=== PATIENT | male | born 1980 | race Hispanic/Latino ===

== ENCOUNTER 2017-07-25 11:43 | Inpatient (IN) | payer OTHER ==
[~2017-07-25] VITALS: Ht 157.5 cm; Wt 66.3 kg
[2017-07-25 12:14] LABS: BASOPHILS # (AUTO) 0.1 (0.0-0.1); BASOPHILS % 0.8 % (0.0-1.0); EOSINOPHILS # (AUTO) 0.1 (0.0-0.4); HEMATOCRIT 45.9 % (38.2-49.6); HEMOGLOBIN 16.1 g/dL (14.0-18.0); LYMPHOCYTES # (AUTO) 2.4 (1.0-3.2); LYMPHOCYTES % 40.4 % (18.0-39.1); MEAN CORPUSCULAR HEMOGLOBIN 31.4 pg (28-32); MEAN CORPUSCULAR HGB CONC 35.1 g/dL (31-35); MEAN CORPUSCULAR VOLUME 89.5 fL (81-99); MONOCYTES # (AUTO) 0.5 (0.2-0.8); MONOCYTES % 8.4 % (4.4-11.3); NEUTROPHILS # (AUTO) 2.9 (2.1-6.9); NEUTROPHILS % 48.1 % (38.7-80.0); PLATELET COUNT 206 x10e3/uL (140-360); RED BLOOD COUNT 5.13 x10e6/uL (4.3-5.7); RED CELL DISTRIBUTION WIDTH 12.2 % (11.7-14.4)
[2017-07-25 12:20] LABS: INR 0.93; PROTHROMBIN TIME 12.9 seconds (11.9-14.5)
[2017-07-25 12:21] LABS: PARTIAL THROMBOPLASTIN TIME 26.4 seconds (23.8-35.5)
--- NOTE | 2017-07-25 12:29 | Diagnostic Imaging Report ---
PROCEDURE: A single AP view of the chest obtained at 1207 hrs. during expiration COMPARISON: None. INDICATIONS: PNEUMOTHORAX FINDINGS: Lines/tubes: None. Lungs: The entire right lung is collapsed due to a pneumothorax. The left lung is clear. There is no pleural effusion. Heart and mediastinum: There is mild leftward shifting of the trachea and to the left and mass effect on the right ventricle. The heart is normal in morphology. Bones: No evidence of fracture or dislocation. No focal osseous lesions. Soft tissues: Unremarkable. IMPRESSION: Large right pneumothorax with mild tension. Findings given to Jamil Pappas at 1228 hours. Dictated by: Fabiola Miller M.D. on 07/25/2017 at 12:37 Electronically approved by: Fabiola Miller M.D. on 07/25/2017 at 12:37
[2017-07-25 12:30] LABS: ALANINE AMINOTRANSFERASE 84 IU/L (0-55); ALBUMIN 4.5 g/dL (3.5-5.0); ALBUMIN/GLOBULIN RATIO 1.3 (0.8-2.0); ALKALINE PHOSPHATASE 47 IU/L (40-150); ANION GAP 12.2 mmol/L (8-16); BLOOD UREA NITROGEN 12 mg/dL (7-26); BUN/CREATININE RATIO 15 (6-25); CALCIUM 9.3 mg/dL (8.4-10.2); CARBON DIOXIDE 25 mmol/L (22-29); CHLORIDE 108 mmol/L (98-107); CREATININE, SERUM 0.82 mg/dL (0.72-1.25); EST GLOMERULAR FILTRATION RATE > 60 ML/MIN (60-); GLUCOSE 93 mg/dL (74-118); POTASSIUM 4.2 mmol/L (3.5-5.1); SODIUM 141 mmol/L (136-145)
[2017-07-25] MEDS ORDERED: MORPHINE SULFATE 2 MG/ML SYR ONE (13:29)
[2017-07-25] MEDS ORDERED: MORPHINE SULFATE 2 MG/ML SYR IV NR (13:30)
[2017-07-25] MEDS ORDERED: MORPHINE SULFATE 4 MG/ML SYR IV ONE (13:30)
--- NOTE | 2017-07-25 14:21 | Diagnostic Imaging Report ---
PROCEDURE: A single AP view of the chest. COMPARISON: Chest x-ray 12 7 hours. INDICATIONS: S/P CHEST TUBE PLACEMENT. FINDINGS: Frontal image obtained at 1413 hrs. Lines/tubes: Thin bore tube has been placed into the right hemithorax. There is only some inflation of the right lung. Large right pneumothorax remains. The left lung is clear. Mass effect on the right atrium and trachea has diminished. No pleural effusion. IMPRESSION: Interval placement of a thin bore right chest tube. Large right pneumothorax is only slightly smaller. Tension on the mediastinum has been released. A larger bore chest tube should be considered. Dictated by: Fabiola Miller M.D. on 07/25/2017 at 14:29 Electronically approved by: Fabiola Miller M.D. on 07/25/2017 at 14:29
--- NOTE | 2017-07-25 16:13 | Diagnostic Imaging Report ---
PROCEDURE: CHEST SINGLE (PORTABLE) 1601 hrs. COMPARISON: Chest x-ray 1403 hrs. INDICATIONS: CHEST TUBE PLACEMENT FINDINGS: The small bore tube now terminates in the apex of the right chest. There is been reexpansion of the right lower lobe. Right upper lobe atelectasis remains but has improved. No pleural effusion. The left lung is stable. There may be a calcified granuloma in the lower left lung field measuring 3 mm. This could also be a bone island. Cardio mediastinal silhouette is normal in morphology. Osseous structures are stable. CONCLUSION: Significant reexpansion of the right lung after chest tube repositioning. Right upper lobe atelectasis remains suggestive of residual pneumothorax. Dictated by: Fabiola Miller M.D. on 07/25/2017 at 16:21 Electronically approved by: Fabiola Miller M.D. on 07/25/2017 at 16:21
[2017-07-25] MEDS ORDERED: MORPHINE SULFATE 5 MG/ML VIAL IV PRN (16:45)
[2017-07-25] MEDS ORDERED: ONDANSETRON HCL INJ 2 MG/ML VIAL IV PRN (16:45)
[2017-07-25] MEDS ORDERED: ACETAMINOPHEN/CODEINE 300MG - 30MG TAB PO PRN (17:30)
--- NOTE | 2017-07-25 18:14 | Consultation ---
DATE OF CONSULTATION: July 25, 2017 PULMONARY CONSULTATION A patient of Dr. Burgos admitted with right-sided chest pain that began approximately 5 days ago when he awakened from sleep. He smoked 2 cigarettes the day before. He is an occasional smoker. He has been progressively short of breath. He thought he had muscle cramps, but the pain persisted. He denies lifting. He has been not working. 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 He has had crushed finger, but no other operations. Denies alcohol use. FAMILY HISTORY: Noncontributory. PHYSICAL EXAMINATION GENERAL: A well-developed white male, anxious, but in no acute distress. VITAL SIGNS: Temperature 98, pulse 70, respirations 16, blood pressure 164/64. HEENT: Head normocephalic, atraumatic. Eyes: Extraocular movements intact. LUNGS: Clear. Diminished breath sounds, right. Mini chest tube noted, right. ABDOMEN: Nontender. EXTREMITIES: Not edematous. IMPRESSION: Spontaneous pneumothorax, slightly elevated liver function. PLAN: Check alpha-1antitrypsin . Request CT chest in the a.m. Alpha-1 antiprotease levels. Continue chest tube drainage. If leak does not stop within the next several days, consideration will be given to undergo fluoroscopic pleurodesis. Thank you for this kind referral. Job#: [id number]
--- NOTE | 2017-07-25 18:42 | Diagnostic Imaging Report ---
PROCEDURE:US ABDOMEN LIMITED COMPARISON:None. INDICATIONS:EVALUATE GB AND LIVER TECHNIQUE: Noel-scale and color doppler transverse and longitudinal images of the right upper quadrant of the abdomen were obtained. FINDINGS: Liver: 13.8 cm in right mid-clavicular line. Increased echogenicity suggestive of steatosis. There is focal fatty sparing adjacent to the gallbladder. No masses. Main portal vein: 1.2 cm. Blood flow is hepatopetal. Gallbladder: Present. A polyp or noncalcified gallstone along the posterior wall measures 2 mm. No gallbladder wall thickening or pericholecystic fluid. Common Bile Duct: 0.2 cm Sonographic Rodriguez's sign: Negative Right kidney: 10.9 cm. Normal echogenicity. No solid masses or hydronephrosis. Pancreas: The visualized portions demonstrate no mass or ductal dilatation. Inferior vena cava: Patent Aorta: Within normal limits Ascites: None in the right upper quadrant of the abdomen. CONCLUSION: Increased hepatic echotexture suggestive of steatosis. Tiny polyp versus noncalcified gallstones the gallbladder as described above. Normal biliary tree. Dictated by: Fabiola Miller M.D. on 07/25/2017 at 18:50 Electronically approved by: Fabiola Miller M.D. on 07/25/2017 at 18:50
--- NOTE | 2017-07-25 21:02 | Diagnostic Imaging Report ---
EXAM: CT Chest WITHOUT contrast INDICATION: \S\ptx, PER RN OLIVER/ CRISTINA POWERS TO DO 07/25/17 AFTER 7PM \[id number] \S\2009 COMPARISON: Chest x-ray on 07/25/2017 TECHNIQUE: Chest was scanned utilizing a multidetector helical scanner from the lung apex through the level of the adrenal glands without administration of IV contrast. Absence of intravenous contrast decreases sensitivity for detection of lymphadenopathy and vascular pathology. Coronal and sagittal reformations were obtained. Routine protocol was performed. IV CONTRAST: None COMPLICATIONS: None RADIATION DOSE: Total DLP: 491.7 mGy*cm Estimated effective dose: (DLP x 0.014 x size factor) mSv CTDIvol has been reviewed. It is below the limits set by the Radiation Protocol Committee (RPC). FINDINGS: LINES/ TUBES: Right pigtail catheter in place terminating in right apex. LUNGS AND AIRWAYS: The lungs are unremarkable. Airways are normal. PLEURA: Small right pneumothorax. Right upper lobe patchy opacities, likely contusions (series 3, image 52). Right lower lobe subsegmental atelectasis and mild scarring. HEART AND MEDIASTINUM: The thyroid gland is normal. No mediastinal, hilar or axillary lymphadenopathy. The heart is normal in size.. There is no pericardial effusion. UPPER ABDOMEN: Unremarkable. BONES: The visualized bony thorax is within normal limits. SOFT TISSUES: Unremarkable. IMPRESSION: Small right pneumothorax with a right pleural pigtail catheter in place. Right upper lobe patchy opacities, which may represent contusions in the setting of trauma, otherwise may represent pneumonia in the appropriate clinical setting. Signed by: Dr. Lauro Richardson MD on 07/25/2017 8:59 PM
[2017-07-25] MEDS: HEPARIN SOD (PORCINE) 5,000 UNIT/ML VIAL SC SCH (21:15)
[2017-07-25 21:53] VITALS: BP 114/72
[2017-07-25 23:00] VITALS: BP 114/72
[2017-07-26] VITALS (8 sets, daily range): BP systolic 88–106; BP diastolic 55–69
[2017-07-26] MEDS ORDERED: CEFTRIAXONE SOD 1 GM VIAL IV SCH (07:45)
--- NOTE | 2017-07-26 07:49 | Diagnostic Imaging Report ---
EXAMINATION: Chest, CHEST SINGLE (PORTABLE) INDICATION: Chest pain COMPARISON: Portable chest 07/25/2017 FINDINGS: LINES: Right pleural drainage catheter. Heart: Normal cardiac silhouette. Vascular: The pulmonary vasculature is within normal limits. Mediastinum: No mediastinal, hilar, or axillary mass or lymphadenopathy. Lungs: No parenchymal mass. No focal consolidation. Pleura: No pleural effusion. No pneumothorax. Bones: No acute osseous abnormality. Soft tissues: Normal. Impression: No acute radiographic abnormality. Signed by: Dr. Asael Jackson M.D. on 07/26/2017 7:46 AM
[2017-07-26] MEDS ORDERED: CEFTRIAXONE SOD 1 GM/NS 50 ML 50 ML IV SCH (08:00)
[2017-07-26] MEDS: HEPARIN SOD (PORCINE) 5,000 UNIT/ML VIAL SC SCH ×2 (08:55→21:22)
[2017-07-26] MEDS: DOCUSATE SODIUM 100 MG CAP PO SCH ×2 (08:55→17:19)
[2017-07-26 09:11] LABS: HIV 1&2 AB SCREEN NON-REACTIVE (NONREACTIVE)
[2017-07-27] VITALS (8 sets, daily range): BP systolic 99–113; BP diastolic 59–72
[2017-07-27 06:53] LABS: CHOL/HDL RATIO 4.3 (3.9-4.7)
[2017-07-27] MEDS: CEFTRIAXONE SOD 1 GM VIAL IV SCH (08:56)
[2017-07-27] MEDS: HEPARIN SOD (PORCINE) 5,000 UNIT/ML VIAL SC SCH ×2 (08:56→21:32)
[2017-07-27] MEDS: DOCUSATE SODIUM 100 MG CAP PO SCH ×2 (08:56→18:20)
--- NOTE | 2017-07-27 11:06 | Diagnostic Imaging Report ---
EXAMINATION: CHEST SINGLE (PORTABLE) INDICATION: \S\PTX COMPARISON: Chest x-ray 07/26/2017 FINDINGS: AP view TUBES and LINES: Right apical pleural chest tube. LUNGS: Lungs are well inflated. Lungs are clear. There is no evidence of pneumonia or pulmonary edema. PLEURA: No pleural effusion or pneumothorax. HEART AND MEDIASTINUM: The cardiomediastinal silhouette is unremarkable. BONES AND SOFT TISSUES: No acute osseous lesion. Soft tissues are unremarkable. UPPER ABDOMEN: No free air under the diaphragm. IMPRESSION: 1. No acute thoracic abnormality. 2. Right apical chest tube. No pneumothorax. Signed by: Dr. Wally Gallegos M.D. on 07/27/2017 11:02 AM
[2017-07-27] MEDS ORDERED: WATER STERILE 10 ML VIAL INJ PRN (18:15)
[2017-07-28] VITALS: BP 97/63
[2017-07-28 04:00] VITALS: BP 101/59
[2017-07-28 08:29] VITALS: BP 105/58
[2017-07-28] MEDS: CEFTRIAXONE SOD 1 GM VIAL IV SCH (08:48)
[2017-07-28] MEDS: DOCUSATE SODIUM 100 MG CAP PO SCH ×2 (08:48→17:08)
[2017-07-28] MEDS: HEPARIN SOD (PORCINE) 5,000 UNIT/ML VIAL SC SCH ×2 (08:50→20:24)
[2017-07-28 12:00] VITALS: BP_SYST 105; BP_SYST 99; BP_DIAS 57; BP_DIAS 58
--- NOTE | 2017-07-28 16:55 | Diagnostic Imaging Report ---
PROCEDURE: A single AP view of the chest. COMPARISON: 07/27/17 INDICATIONS: PNEUMOTHORAX FINDINGS: Lines/tubes: Unchanged pleural catheter with tip overlying right apex. Lungs: The lungs are well inflated and clear. There is no evidence of pneumonia or pulmonary edema. Pleura: There is no pleural effusion or pneumothorax. Heart and mediastinum: The heart and the mediastinum are unremarkable. Bones: No acute bony abnormality. IMPRESSION: No visible pneumothorax. No change from prior exam. Dictated by: Lauro Richardson M.D. on 07/28/2017 at 17:03 Electronically approved by: Lauro Richardson M.D. on 07/28/2017 at 17:03
[2017-07-28 17:23] VITALS: BP 101/60
[2017-07-28 20:00] VITALS: BP 101/65
[2017-07-29] VITALS (7 sets, daily range): BP systolic 91–119; BP diastolic 51–80
--- NOTE | 2017-07-29 07:30 | Diagnostic Imaging Report ---
Examination: Single AP view of the chest. COMPARISON: None. INDICATION: Pneumothorax, chest tube reportedly 2 waterseal overnight 07/28/2017 DISCUSSION: Right apical pleural catheter is again noted. Interval reaccumulation of moderate right apical pneumothorax, maximum air gap 2.7 cm. Lungs are otherwise clear without consolidation or effusion. Cardiomediastinal contour is within normal limits. No acute osseous abnormality. IMPRESSION: Interval reaccumulation of right apical pneumothorax, maximum air gap 2.7 cm. Findings were discussed by telephone with RN Ms. Donaldson at 0720 hours 07/29/2017. Signed by: Dr. Pernell Acosta M.D. on 07/29/2017 7:27 AM
[2017-07-29] MEDS: HEPARIN SOD (PORCINE) 5,000 UNIT/ML VIAL SC SCH ×2 (08:34→22:06)
[2017-07-29] MEDS: DOCUSATE SODIUM 100 MG CAP PO SCH ×2 (08:34→16:37)
[2017-07-29] MEDS: CEFTRIAXONE SOD 1 GM VIAL IV SCH (08:34)
[2017-07-30] VITALS (8 sets, daily range): BP systolic 97–121; BP diastolic 53–69
--- NOTE | 2017-07-30 09:56 | Diagnostic Imaging Report ---
PROCEDURE: A single AP view of the chest. COMPARISON: Portable chest 07/29/2017. INDICATIONS: PNEUMOTHORAX FINDINGS: Lines/tubes: Pleural catheter projects over the right lung. Lungs: No focal consolidation. No parenchymal mass. Pleura: Right apical pneumothorax, measuring 1.3 cm in the right midclavicular line. The right apical pneumothorax is decreased compared to the previous study. No left pneumothorax. No pleural effusion. Heart and mediastinum: The heart and the mediastinum are unremarkable. Bones: No acute bony abnormality. IMPRESSION: Interval decrease of the right apical pneumothorax. Dictated by: Asael Jackson M.D. on 07/30/2017 at 10:05 Electronically approved by: Aasel Jackson M.D. on 07/30/2017 at 10:05
[2017-07-30] MEDS: HEPARIN SOD (PORCINE) 5,000 UNIT/ML VIAL SC SCH ×2 (10:55→21:41)
[2017-07-30] MEDS: DOCUSATE SODIUM 100 MG CAP PO SCH ×2 (10:55→18:00)
[2017-07-30] MEDS: CEFTRIAXONE SOD 1 GM VIAL IV SCH (10:55)
[2017-07-31] VITALS (7 sets, daily range): BP systolic 100–121; BP diastolic 52–70
[2017-07-31 07:45] LABS: BASOPHILS # (AUTO) 0.1 (0.0-0.1); BASOPHILS % 1.1 % (0.0-1.0); EOSINOPHILS # (AUTO) 0.3 (0.0-0.4); EOSINOPHILS % 4.8 % (0.0-6.0); HEMATOCRIT 43.6 % (38.2-49.6); HEMOGLOBIN 15.1 g/dL (14.0-18.0); LYMPHOCYTES # (AUTO) 2.3 (1.0-3.2); LYMPHOCYTES % 43.5 % (18.0-39.1); MEAN CORPUSCULAR HEMOGLOBIN 30.8 pg (28-32); MEAN CORPUSCULAR HGB CONC 34.6 g/dL (31-35); MONOCYTES # (AUTO) 0.5 (0.2-0.8); MONOCYTES % 9.7 % (4.4-11.3); NEUTROPHILS # (AUTO) 2.1 (2.1-6.9); NEUTROPHILS % 40.5 % (38.7-80.0); PLATELET COUNT 216 x10e3/uL (140-360); RED CELL DISTRIBUTION WIDTH 12.1 % (11.7-14.4)
[2017-07-31 08:11] LABS: ALANINE AMINOTRANSFERASE 97 IU/L (0-55); ALBUMIN 3.8 g/dL (3.5-5.0); ALBUMIN/GLOBULIN RATIO 1.2 (0.8-2.0); ALKALINE PHOSPHATASE 42 IU/L (40-150); BLOOD UREA NITROGEN 12 mg/dL (7-26); BUN/CREATININE RATIO 15 (6-25); CALCIUM 9.1 mg/dL (8.4-10.2); CARBON DIOXIDE 25 mmol/L (22-29); CHLORIDE 108 mmol/L (98-107); EST GLOMERULAR FILTRATION RATE > 60 ML/MIN (60-); GLUCOSE 89 mg/dL (74-118); MAGNESIUM 2.2 MG/DL (1.3-2.1); SODIUM 140 mmol/L (136-145)
[2017-07-31] MEDS: HEPARIN SOD (PORCINE) 5,000 UNIT/ML VIAL SC SCH ×2 (09:47→21:16)
[2017-07-31] MEDS: DOCUSATE SODIUM 100 MG CAP PO SCH ×2 (09:47→17:59)
[2017-07-31] MEDS: CEFTRIAXONE SOD 1 GM VIAL IV SCH (09:47)
--- NOTE | 2017-07-31 11:32 | Diagnostic Imaging Report ---
PROCEDURE: X-RAY CHEST, TWO VIEWS COMPARISON: Chest x-ray 07/30/17. INDICATIONS: PNEUMOTHORAX FINDINGS: LINES/TUBES: Small bore tube in the upper right chest is stable in position. LUNGS: No mass or consolidation. The pulmonary vascular markings are normal. PLEURA: Right apical pneumothorax measures 5 mm. No pleural effusions. HEART \T\ MEDIASTINUM: The heart is within normal size-limits. BONES \T\ SOFT TISSUES: No focal other abnormalities CONCLUSION: Tiny right apical pneumothorax. No new cardiothoracic findings. Dictated by: Fabiola Miller M.D. on 07/31/2017 at 11:40 Electronically approved by: Fabiola Miller M.D. on 07/31/2017 at 11:40
[2017-08-01] VITALS (8 sets, daily range): BP systolic 96–112; BP diastolic 55–69
[2017-08-01] MEDS: DOCUSATE SODIUM 100 MG CAP PO SCH ×2 (07:43→16:55)
[2017-08-01] MEDS: CEFTRIAXONE SOD 1 GM VIAL IV SCH (07:43)
[2017-08-01] MEDS: HEPARIN SOD (PORCINE) 5,000 UNIT/ML VIAL SC SCH (07:43)
--- NOTE | 2017-08-01 08:22 | Diagnostic Imaging Report ---
PROCEDURE: Frontal and lateral views of the chest. COMPARISON: Patients [facility], , CHEST 2 VIEWS, 07/31/2017, 10:59. INDICATIONS: PNEUMOTHORAX FINDINGS: Lines/tubes: No change in the small right upper lung field chest tube. Lungs: The lungs are well inflated and clear. There is no evidence of pneumonia or pulmonary edema. Pleura: The size of the apical pneumothorax has diminished and is barely detectable. Heart and mediastinum: The heart and the mediastinum are normal. Bones: No acute bony abnormality. IMPRESSION: Tiny residual right apical pneumothorax. Shan Cook D.O. Dictated by: Shan Cook D.O. on 08/01/2017 at 8:30 Electronically approved by: Shan Cook D.O. on 08/01/2017 at 8:30
--- NOTE | 2017-08-01 12:52 | Diagnostic Imaging Report ---
PROCEDURE:CHEST TUBE REMOVAL CATH COMPARISON:None. INDICATIONS:CHEST TUBE REMOVAL, PNEUMOTHORAX RESOLVED FINDINGS:A fluoroscopic image was obtained over the right apex revealing the small bore apical chest tube. No pneumothorax is identified. The chest tube was removed and subsequent followup upright fluoroscopic image of the right apex performed. Fluoroscopy time: 0.1 minutes. Total dose: 0.98 mGy CONCLUSION:Removal of the right apical small bore chest tube. No pneumothorax following removal. Shan Cook D.O. Dictated by: Shan Cook D.O. on 08/01/2017 at 12:59 Electronically approved by: Shan Cook D.O. on 08/01/2017 at 12:59
--- NOTE | 2017-08-01 17:47 | Diagnostic Imaging Report ---
PROCEDURE: A single AP view of the chest. COMPARISON: Patients [facility], , CHEST 2 VIEWS, 08/01/2017, 8:01. INDICATIONS: follow up pneumothorax FINDINGS: See impression. IMPRESSION: 1. no definite pneumothorax is noted. 2. Lungs are clear. Cardiac mediastinal silhouette is unremarkable. Luca Chowdary M.D. Dictated by: Luca Chowdary M.D. on 08/01/2017 at 17:55 Electronically approved by: Luca Chowdary M.D. on 08/01/2017 at 17:55
== END 2017-08-01 21:34 | disposition home or self-care (01) | DRG 201 ==
LOC: ER 11:43 → ERHOLD 17:28 → MED/SURG 21:00
PROVIDERS: ADMIT Internal Medicine; ATTEND Internal Medicine
PROC: 0W9930Z Drainage of Right Pleural Cavity with Drainage Device, Percutaneous Approach (ICD-10-PCS; principal; 2017-07-25)
PROC: 0WP9X0Z Removal of Drainage Device from Right Pleural Cavity, External Approach (ICD-10-PCS; 2017-08-01)
DX: J93.0 Spontaneous tension pneumothorax (principal); F17.210 Nicotine dependence, cigarettes, uncomplicated
CPT/HCPCS: 32551; 32552; 36415; 71010; 71020; 71250; 74470; 76705; 80053; 80061; 82103; 83735; 85025; 85610; 85730; 87390; 93005; 96374; 99284; G0433; G0435; J0696; J1644; J2270

== ENCOUNTER 2018-07-15 13:34 | Inpatient (IN) | payer BC, OTHER ==
[~2018-07-15] VITALS: Ht 154.9 cm; Wt 68.0 kg
--- OUTSIDE RECORDS SUMMARY | 2018-07-15 13:37 | XMS REPORT ---
[facility] Address Unknown Phone Unavailable Care Team Providers Care Cork Wirer Name Role Phone ARTHUR GARCIA Unavailable Unavailable Problems This patient has no known problems. Allergies, Adverse Reactions, Alerts This patient has no known allergies or adverse reactions. Medications This patient has no known medications. Results Test Description Test Time Test Comments Text Results Atomic Results Result Comments CHEST SINGLE (PORTABLE) [place] [address] Patient Name: ZACHARY BOND MR #: [id number] : 1980 Age/Sex: 36/M Req #: [id number] Adm Physician: ARTHUR GARCIA MD Ordered by: KIMO RICHARDSON MD Report #: [id number] Location: MED/SURG Room/Bed: [facility] Procedure: [id number] DX/CHEST SINGLE (PORTABLE) Exam Date: 08/01/17 Exam Time: 1700 REPORT STATUS: Signed PROCEDURE: A single AP view of the chest. COMPARISON: [facility], CHEST 2 VIEWS, 08/01/2017, 8:01. INDICATIONS: follow up pneumothorax FINDINGS: See impression. IMPRESSION: 1. no definite pneumothorax is noted. 2. Lungs are clear. Cardiac mediastinal silhouette is unremarkable. Luca Napoles M.D. Dictated by: Luca Napoles M.D. on 08/01/2017 at 17:55 Electronically approved by: Luca Napoles M.D. on 08/01/2017 at 17:55 Dictated By: LUCA NAPOLES MD 54 Transcribed By: SARAH on 08/01/171754 COPY TO: KIMO RICHARDSON MD IR CONSULT [place] [address] Patient Name: ZACHARY BOND MR #: [id number] : 1980 Age/Sex: 36/M Req #: [id number] Adm Physician: ARTHUR GARCIA MD Ordered by: KIMO RICHARDSON MD Report #: [id number] Location: MED/SURG Room/Bed: [facility] Procedure: [id number] DX/IR CONSULT Exam Date: Exam Time: REPORT STATUS: Signed PROCEDURE: CHEST TUBE REMOVAL CATH COMPARISON: None. INDICATIONS: CHEST TUBE REMOVAL, PNEUMOTHORAX RESOLVED FINDINGS: A fluoroscopic image was obtained over the right apex revealing the small bore apical chest tube. No pneumothorax is identified. The chest tube was removed and subsequent followup upright fluoroscopic image of the right apex performed. Fluoroscopy time: 0.1 minutes. Total dose: 0.98 mGy CONCLUSION: Removal of the right apical small bore chest tube. No pneumothorax following removal. Shan Sow D.O. Dictated by: Shan Sow D.O. on 08/01/2017 at 12:59 Electronically approved by: Shan Sow D.O. on 08/01/2017 at 12:59 Dictated By: SHAN SOW DO 1300 Transcribed By: SARAH on 08/01/17 1300 COPY TO: KIMO RICHARDSON MD CHEST 2 VIEWS [place] [address] Patient Name: ZACHARY BOND MR #: [id number] : 1980 Age/Sex: 36/M Req #: [id number] Adm Physician: ARTHUR GARCIA MD Ordered by: TERRA NEWSOME MD Report #: [id number] Location: MED/SURG Room/Bed: [facility] Procedure: [id number] DX/CHEST 2 VIEWS Exam Date: 08/01/17 Exam Time: 0755 REPORT STATUS: Signed PROCEDURE: Frontal and lateral views of the chest. COMPARISON: [facility], , CHEST 2 VIEWS, 07/31/2017, 10:59. INDICATIONS: PNEUMOTHORAX FINDINGS: Lines/tubes: No change in the small right upper lung field chest tube. Lungs: The lungs are well inflated and clear. There is no evidence of pneumonia or pulmonary edema. Pleura: The size of the apical pneumothorax has diminished and is barely detectable. Heart and mediastinum: The heart and the mediastinum are normal. Bones: No acute bony abnormality. IMPRESSION: Tiny residual right apical pneumothorax. Shan Sow D.O. Dictated by: Shan Sow D.O. on 08/01/2017 at 8:30 Electronically approved by: Shan Sow D.O. on 08/01/2017 at 8:30 Dictated By: SHAN SOW DO 0830 Transcribed By: SARAH on 08/01/17 0830 COPY TO: TERRA NEWSOME MD CHEST TUBE REMOVAL CATH [place] [address] Patient Name: ZACHARY BOND MR #: [id number] : 1980 Age/Sex: 36/M Req #: [id number] Adm Physician: ARTHUR GARCIA MD Ordered by: ARTHUR GARCIA MD Report #: [id number] Location: MED/SURG Room/Bed: [facility] Procedure: [id number] IR/CHEST TUBE REMOVAL CATH Exam Date: Exam Time: REPORT STATUS: Signed PROCEDURE: CHEST TUBE REMOVAL CATH COMPARISON: None. INDICATIONS: CHEST TUBE REMOVAL, PNEUMOTHORAX RESOLVED FINDINGS: A fluoroscopic image was obtained over the right apex revealing the small bore apical chest tube. No pneumothorax is identified. The chest tube was removed and subsequent followup upright fluoroscopic image of the right apex performed. Fluoroscopy time: 0.1 minutes. Total dose: 0.98 mGy CONCLUSION: Removal of the right apical small bore chest tube. No pneumothorax following removal. Shan Sow D.O. Dictated by: Shan Sow D.O. on 08/01/2017 at 12:59 Electronically approved by: Shan Sow D.O. on 08/01/2017 at 12:59 Dictated By: SHAN SOW DO 1300 Transcribed By: SARAH on 08/01/17 1300 COPY TO: ARTHUR GARCIA MD CHEST 2 VIEWS [place] [address] Patient Name: ZACHARY BOND MR #: [id number] : 1980 Age/Sex: 36/M Req #: [id number] Adm Physician: ARTHUR GARCIA MD Ordered by: TERRA NEWSOME MD Report #: [id number] Location: MED/SURG Room/Bed: 109-1 Procedure: [id number] DX/CHEST 2 VIEWS Exam Date: 07/31/17 Exam Time: 1100 REPORT STATUS: Signed PROCEDURE: X-RAY CHEST, TWO VIEWS COMPARISON: Chest x-ray 07/30/17. INDICATIONS: PNEUMOTHORAX FINDINGS: LINES/TUBES: Small bore tube in the upper right chest is stable in position. LUNGS: No mass or consolidation. The pulmonary vascular markings are normal. PLEURA: Right apical pneumothorax measures 5 mm. No pleural effusions. HEART T MEDIASTINUM: The heart is within normal size- limits. BONES T SOFT TISSUES: No focal other abnormalities CONCLUSION: Tiny right apical pneumothorax. No new cardiothoracic findings. Dictated by: Lorna Zamudio M.D. on 07/31/2017 at 11:40 Electronically approved by: Lorna Zamudio M.D. on 07/31/2017 at 11:40 Dictated By: LORNA ZAMUDIO MD 1140 Transcribed By: SARAH on 07/31/17 1140 COPY TO: TERRA NEWSOME MD CHEST SINGLE (PORTABLE) [place] [address] Patient Name: ZACHARY BOND MR #: [id number] : 1980 Age/Sex: 36/M Req #: [id number] Adm Physician: ARTHUR GARCIA MD Ordered by: KIMO RICHARDSON MD Report #: [id number] Location: MED/SURG Room/Bed: 109-1 Procedure: [id number] DX/CHEST SINGLE (PORTABLE) Exam Date: 07/30/17 Exam Time: 928 REPORT STATUS: Signed PROCEDURE: A single AP view of the chest. COMPARISON: Portable chest 07/29/2017. INDICATIONS: PNEUMOTHORAX FINDINGS: Lines/tubes: Pleural catheter projects over the right lung. Lungs: No focal consolidation. No parenchymal mass. Pleura: Right apical pneumothorax, measuring 1.3 cm in the right midclavicular line. The right apical pneumothorax is decreased compared to the previous study. No left pneumothorax. No pleural effusion. Heart and mediastinum: The heart and the mediastinum are unremarkable. Bones: No acute bony abnormality. IMPRESSION: Interval decrease of the right apical pneumothorax. Dictated by: Kika Colon M.D. on 07/30/2017 at 10:05 Electronically approved by: Kika Colon M.D. on 07/30/2017 at 10:05 Dictated By: KIKA COLON MD 1005 Transcribed By: SARAH on 07/30/17 1005 COPY TO: KIMO RICHARDSON MD CHEST SINGLE (PORTABLE) [place] [address] Patient Name: ZACHARY BOND MR #: [id number] : 1980 Age/Sex: 36/M Req #: [id number] Adm Physician: ARTHUR GARCIA MD Ordered by: KIMO RICHARDSON MD Report #: [id number] Location: MED/SURG Room/Bed: 109-1 Procedure: [id number] DX/CHEST SINGLE (PORTABLE) Exam Date: 07/29/17 Exam Time: 0545 REPORT STATUS: Signed Examination: Single AP view of the chest. COMPARISON: None. INDICATION: Pneumothorax, chest tube reportedly 2 waterseal overnight 07/28/2017 DISCUSSION: Right apical pleural catheter is again noted. Interval reaccumulation of moderate right apical pneumothorax, maximum air gap 2.7 cm. Lungs are otherwise clear without consolidation or effusion. Cardiomediastinal contour is within normal limits. No acute osseous abnormality. IMPRESSION: Interval reaccumulation of right apical pneumothorax, maximum air gap 2.7 cm. Findings were discussed by telephone with SANDRA Donaldson at 0720 hours 07/29/2017. Signed by: Dr. Renee Acosta M.D. on 07/29/2017 7:27 AM Dictated By: RENEE ACOSTA MD 6 Transcribed By: СЕРГЕЙ on 07/29/17726 COPY TO: KIMO RICHARDSON MD CHEST SINGLE (PORTABLE) [place] [address] Patient Name: ZACHARY BOND MR #: [id number] : 1980 Age/Sex: 36/M Req #: [id number] Adm Physician: ARTHUR GARCIA MD Ordered by: KIMO RICHARDSON MD Report #: [id number] Location: MED/SURG Room/Bed: 109 Procedure: [id number] DX/CHEST SINGLE (PORTABLE) Exam Date: 07/28/17 Exam Time: 1635 REPORT STATUS: Signed PROCEDURE: A single AP view of the chest. COMPARISON: 07/27/17 INDICATIONS: PNEUMOTHORAX FINDINGS: Lines/tubes: Unchanged pleural catheter with tip overlying right apex. Lungs: The lungs are well inflated and clear. There is no evidence of pneumonia or pulmonary edema. Pleura: There is no pleural effusion or pneumothorax. Heart and mediastinum: The heart and the mediastinum are unremarkable. Bones: No acute bony abnormality. IMPRESSION: No visible pneumothorax. No change from prior exam. Dictated by: Lauro Madrid M.D. on 07/28/2017 at 17:03 Electronically approved by: Lauro Madrid M.D. on 07/28/2017 at 17:03 Dictated By: LAURO MADRID MD 02 Transcribed By: SARAH on 07/28/171702 COPY TO: KIMO RICHARDSON MD CHEST SINGLE (PORTABLE) [place] [address] Patient Name: ZACHARY BOND MR #: [id number] : 1980 Age/Sex: 36/M Req #: [id number] Adm Physician: ARTHUR GARCIA MD Ordered by: RENEE PADILLA MD Report #: [id number] Location: MED/SURG Room/Bed: [facility] Procedure: [id number] DX/CHEST SINGLE (PORTABLE) Exam Date: 07/27/17 Exam Time: 1031 REPORT STATUS: Signed EXAMINATION: CHEST SINGLE (PORTABLE) INDICATION: S PTX COMPARISON: Chest x-ray 07/26/2017 FINDINGS: AP view TUBES and LINES: Right apical pleural chest tube. LUNGS: Lungs are well inflated. Lungs are clear. There is no evidence of pneumonia or pulmonary edema. PLEURA: No pleural effusion or pneumothorax. HEART AND MEDIASTINUM: The cardiomediastinal silhouette is unremarkable. BONES AND SOFT TISSUES: No acute osseous lesion. Soft tissues are unremarkable. UPPER ABDOMEN: No free air under the diaphragm. IMPRESSION: 1. No acute thoracic abnormality. 2. Right apical chest tube. No pneumothorax. Signed by: Dr. Wally Rushing M.D. on 07/27/2017 11:02 AM Dictated By: WALLY RUSHING MD 110 Transcribed By: СЕРГЕЙ on 07/27/17 110 COPY TO: RENEE PADILLA MD CHEST SINGLE (PORTABLE) [place] [address] Patient Name: ZACHARY BOND MR #: [id number] : 1980 Age/Sex: 36/M Req #: [id number] Adm Physician: ARTHUR GARCIA MD Ordered by: BARBARA PALACIOS MD Report #: [id number] Location: MED/SURG Room/Bed: [facility] Procedure: [id number] DX/CHEST SINGLE (PORTABLE) Exam Date: Exam Time: REPORT STATUS: Signed EXAMINATION: Chest, CHEST SINGLE (PORTABLE) INDICATION: Chest pain COMPARISON: Portable chest 07/25/2017 FINDINGS: LINES: Right pleural drainage catheter. Heart: Normal cardiac silhouette. Vascular: The pulmonary vasculature is within normal limits. Mediastinum: No mediastinal, hilar, or axillary mass or lymphadenopathy. Lungs: No parenchymal mass. No focal consolidation. Pleura: No pleural effusion. No pneumothorax. Bones: No acute osseous abnormality. Soft tissues: Normal. Impression: No acute radiographic abnormality. Signed by: Dr. Kika Colon M.D. on 07/26/2017 7:46 AM Dictated By: KIKA COLON MD 5 Transcribed By: СЕРГЕЙ on 07/26/17745 COPY TO: BARBARA PALACIOS MD CHEST SINGLE (PORTABLE) [place] [address] Patient Name: ZACHARY BOND MR #: [id number] : 1980 Age/Sex: 36/M Req #: [id number] Adm Physician: Ordered by: BARBARA PALACIOS MD Report #: [id number] Location: ER Room/Bed: Procedure: [id number] DX/CHEST SINGLE (PORTABLE) Exam Date: 07/25/17 Exam Time: 1550 REPORT STATUS: Signed PROCEDURE: CHEST SINGLE (PORTABLE) 1601 hrs. COMPARISON: Chest x-ray 1403 hrs. INDICATIONS: CHEST TUBE PLACEMENT FINDINGS: The small bore tube now terminates in the apex of the right chest. There is been reexpansion of the right lower lobe. Right upper lobe atelectasis remains but has improved. No pleural effusion. The left lung is stable. There may be a calcified granuloma in the lower left lung field measuring 3 mm. This could also be a bone island. Cardio mediastinal silhouette is normal in morphology. Osseous structures are stable. CONCLUSION: Significant reexpansion of the right lung after chest tube repositioning. Right upper lobe atelectasis remains suggestive of residual pneumothorax. Dictated by: Lorna Zamudio M.D. on 07/25/2017 at 16:21 Electronically approved by: Lorna Zamudio M.D. on 07/25/2017 at 16:21 Dictated By: LORNA ZAMUDIO MD 20 Transcribed By: SARAH on 07/25/17 162 COPY TO: BARBARA PALACIOS MD CHEST SINGLE (PORTABLE) [place] [address] Patient Name: ZACHARY BOND MR #: [id number] : 1980 Age/Sex: 36/M Req #: [id number] Adm Physician: Ordered by: BARBARA PALACIOS MD Report #: [id number] Location: ER Room/Bed: Procedure: [id number] DX/CHEST SINGLE (PORTABLE) Exam Date: 07/25/17 Exam Time: 1340 REPORT STATUS: Signed PROCEDURE: A single AP view of the chest. COMPARISON: Chest x-ray 12 7 hours. INDICATIONS: S/P CHEST TUBE PLACEMENT. FINDINGS: Frontal image obtained at 1413 hrs. Lines/tubes: Thin bore tube has been placed into the right hemithorax. There is only some inflation of the right lung. Large right pneumothorax remains. The left lung is clear. Mass effect on the right atrium and trachea has diminished. No pleural effusion. IMPRESSION: Interval placement of a thin bore right chest tube. Large right pneumothorax is only slightly smaller. Tension on the mediastinum has been released. A larger bore chest tube should be considered. Dictated by: Lorna Zamudio M.D. on 07/25/2017 at 14:29 Electronically approved by: Lorna Zamudio M.D. on 07/25/2017 at 14:29 Dictated By: LORNA ZAMUDIO MD 28 Transcribed By: SARAH on 07/25/171428 COPY TO: BARBARA PALACIOS MD CHEST SINGLE (PORTABLE) [place] [address] Patient Name: ZACHARY BOND MR #: [id number] : 1980 Age/Sex: 36/M Req #: [id number] Adm Physician: Ordered by: BARBARA PALACIOS MD Report #: [id number] Location: ER Room/Bed: Procedure: [id number] DX/CHEST SINGLE (PORTABLE) Exam Date: 07/25/17 Exam Time: 1220 REPORT STATUS: Signed PROCEDURE: A single AP view of the chest obtained at 1207 hrs. during expiration COMPARISON: None. INDICATIONS: PNEUMOTHORAX FINDINGS: Lines/tubes: None. Lungs: The entire right lung is collapsed due to a pneumothorax. The left lung is clear. There is no pleural effusion. Heart and mediastinum: There is mild leftward shifting of the trachea and to the left and mass effect on the right ventricle. The heart is normal in morphology. Bones: No evidence of fracture or dislocation. No focal osseous lesions. Soft tissues: Unremarkable. IMPRESSION: Large right pneumothorax with mild tension. Findings given to Barbara Palacios at 1228 hours. Dictated by: Lorna Zamudio M.D. on 07/25/2017 at 12:37 Electronically approved by: Lorna Zamudio M.D. on 07/25/2017 at 12:37 Dictated By: LORNA ZAMUDIO MD 1237 Transcribed By: SARAH on 07/25/17 1237 COPY TO: BARBARA PALACIOS MD CT CHEST WO [facility] [address] [place] [address] Patient Name: ZACHARY BOND MR #: [id number] : 1980 Age/Sex: 36/M Req #: [id number] Adm Physician: ARTHUR GARCIA MD Ordered by: RENEE PADILLA MD Report #: [id number] Location: MED/SURG Room/Bed: [facility] Procedure: [id number] CT/CT CHEST WO Exam Date: 07/25/17 Exam Time: 2009 REPORT STATUS: Signed EXAM: CT Chest WITHOUT contrast INDICATION: COMPARISON: Chest x-ray on 07/25/2017 TECHNIQUE: Chest was scanned utilizing a multidetector helical scanner from the lung apex through the level of the adrenal glands without administration of IV contrast. Absence of intravenous contrast decreases sensitivity for detection of lymphadenopathy and vascular pathology. Coronal and sagittal reformations were obtained. Routine protocol was performed. IV CONTRAST: None COMPLICATIONS: None RADIATION DOSE: Total DLP: 491.7 mGy*cm Estimated effective dose: (DLP x 0.014 x size factor) mSv CTDIvol has been reviewed. It is below the limits set by the Radiation Protocol Committee (RPC). FINDINGS: LINES/ TUBES: Right pigtail catheter in place terminating in right apex. LUNGS AND AIRWAYS: The lungs are unremarkable. Airways are normal. PLEURA: Small right pneumothorax. Right upper lobe patchy opacities, likely contusions (series 3, image 52). Right lower lobe subsegmental atelectasis and mild scarring. HEART AND MEDIASTINUM: The thyroid gland is normal. No mediastinal, hilar or axillary lymphadenopathy. The heart is normal in size.. There is no pericardial effusion. UPPER ABDOMEN: Unremarkable. BONES: The visualized bony thorax is within normal limits. SOFT TISSUES: Unremarkable. IMPRESS ION: Small right pneumothorax with a right pleural pigtail catheter in place. Right upper lobe patchy opacities, which may represent contusions in the setting of trauma, otherwise may represent pneumonia in the appropriate clinical setting. Signed by: Dr. Lauro Madrid MD on 07/25/2017 8:59 PM Dictated By: LAURO MADRID MD 58 Transcribed By: СЕРГЕЙ on 07/25/172058 COPY TO: RENEE PADILLA MD US ABDOMEN LIMITED [place] [address] Patient Name: ZACHARY BOND MR #: [id number] : 1980 Age/Sex: 36/M Req #: [id number] Adm Physician: ARTHUR GARCIA MD Ordered by: RENEE PADILLA MD Report #: [id number] Location: [facility] Room/Bed: [place] [address] Procedure: [id number] US/US ABDOMEN LIMITED Exam Date: 07/25/17 Exam Time: 1758 REPORT STATUS: Signed PROCEDURE: US ABDOMEN LIMITED COMPARISON: None. INDICATIONS: EVALUATE GB AND LIVER TECHNIQUE: Noel-scale and color doppler transverse and longitudinal images of the right upper quadrant of the abdomen were obtained. FINDINGS: Liver: 13.8 cm in right mid- clavicular line. Increased echogenicity suggestive of steatosis. There is focal fatty sparing adjacent to the gallbladder. No masses. Main portal vein: 1.2 cm. Blood flow is hepatopetal. Gallbladder: Present. A polyp or noncalcified gallstone along the posterior wall measures 2 mm. No gallbladder wall thickening or pericholecystic fluid. Common Bile Duct: 0.2 cm Sonographic Rodriguez's sign: Negative Right kidney: 10.9 cm. Normal echogenicity. No solid masses or hydronephrosis. Pancreas: The visualized portions demonstrate no mass or ductal dilatation. Inferior vena cava: Patent Aorta: Within normal limits Ascites: None in the right upper quadrant of the abdomen. CONCLUSION: Increased hepatic echotexture suggestive of steatosis. Tiny polyp versus noncalcified gallstones the gallbladder as described above. Normal biliary tree. Dictated by: Lorna Zamudio M.D. on 07/25/2017 at 18:50 Electronically approved by: Lorna Zamudio M.D. on 07/25/2017 at 18:50 Dictated By: LORNA ZAMUDIO MD 49 Transcribed By: SARAH on 07/25/171849 COPY TO: RENEE PADILLA MD
[2018-07-15 14:27] LABS: BASOPHILS # (AUTO) 0.1 (0.0-0.1); BASOPHILS % 0.9 % (0.0-1.0); EOSINOPHILS # (AUTO) 0.2 (0.0-0.4); EOSINOPHILS % 3.6 % (0.0-6.0); HEMATOCRIT 44.4 % (38.2-49.6); HEMOGLOBIN 15.5 g/dL (14.0-18.0); LYMPHOCYTES # (AUTO) 2.2 (1.0-3.2); MEAN CORPUSCULAR HEMOGLOBIN 30.8 pg (28-32); MEAN CORPUSCULAR HGB CONC 34.9 g/dL (31-35); MEAN CORPUSCULAR VOLUME 88.1 fL (81-99); MONOCYTES # (AUTO) 0.5 (0.2-0.8); MONOCYTES % 8.1 % (4.4-11.3); NEUTROPHILS # (AUTO) 3.6 (2.1-6.9); NEUTROPHILS % 53.9 % (38.7-80.0); PLATELET COUNT 228 x10e3/uL (140-360); RED BLOOD COUNT 5.04 x10e6/uL (4.3-5.7); RED CELL DISTRIBUTION WIDTH 13.1 % (11.7-14.4)
[2018-07-15 14:39] LABS: INR 0.82; PARTIAL THROMBOPLASTIN TIME 27.1 seconds (23.8-35.5); PROTHROMBIN TIME 12.1 seconds (11.9-14.5)
[2018-07-15 14:48] LABS: ANION GAP 15.2 mmol/L (8-16); BLOOD UREA NITROGEN 11 mg/dL (7-26); BUN/CREATININE RATIO 13 (6-25); CALCIUM 10.2 mg/dL (8.4-10.2); CARBON DIOXIDE 23 mmol/L (22-29); CHLORIDE 103 mmol/L (98-107); CREATININE, SERUM 0.85 mg/dL (0.72-1.25); EST GLOMERULAR FILTRATION RATE > 60 ML/MIN (60-); GLUCOSE 91 mg/dL (74-118); POTASSIUM 3.2 mmol/L (3.5-5.1); SODIUM 138 mmol/L (136-145)
--- NOTE | 2018-07-15 14:56 | Diagnostic Imaging Report ---
PROCEDURE: X-RAY CHEST, TWO VIEWS COMPARISON: None. INDICATIONS: PNEUMOTHORAX RIGHT FINDINGS: LUNGS: No consolidations or edema. PLEURA: There is a large right-sided pneumothorax. HEART & MEDIASTINUM: The heart is within normal size-limits. BONES & SOFT TISSUES: No acute findings. ER nurse is aware of this finding. CONCLUSION: Large right sided pneumothorax. Shan Cook D.O. Dictated by: Shan Cook D.O. on 07/15/2018 at 15:07 Electronically approved by: Shan Cook D.O. on 07/15/2018 at 15:07
--- NOTE | 2018-07-15 15:10 | NUR ---
Consent obtained for chest tube insertion.
[2018-07-15] MEDS ORDERED: LIDOCAINE HCL 1% LOCAL INJ 20 ML VIAL INJ ONE (15:15)
[2018-07-15] MEDS ORDERED: CEFTRIAXONE SOD 1 GM VIAL IV SCH (15:15)
[2018-07-15] MEDS: AZITHROMYCIN 500MG/NS 250 ML 250 ML IV SCH (15:30)
[2018-07-15] MEDS ORDERED: HYDROMORPHONE 2MG/ML 2 MG/ML ML ONE (15:39)
[2018-07-15] MEDS ORDERED: ONDANSETRON HCL INJ 2 MG/ML VIAL ONE (15:39)
[2018-07-15] MEDS ORDERED: ONDANSETRON HCL INJ 2 MG/ML VIAL IV STA (16:05)
[2018-07-15] MEDS ORDERED: HYDROMORPHONE 2MG/ML 2 MG/ML ML IV ONE (16:15)
[2018-07-15] MEDS ORDERED: ONDANSETRON HCL INJ 2 MG/ML VIAL IV ONE (16:15)
[2018-07-15] MEDS ORDERED: HYDROMORPHONE 1MG/1ML INJ IV PRN (16:30)
[2018-07-15] MEDS ORDERED: ONDANSETRON HCL INJ 2 MG/ML VIAL IV PRN (16:30)
--- NOTE | 2018-07-15 16:30 | NUR ---
2 cm from chest tube retracted by Dr. Beltre. X-ray called and notified of stat chest x ray.
--- NOTE | 2018-07-15 16:41 | Diagnostic Imaging Report ---
Examination: Single AP view of the chest. COMPARISON: 07/15/2018 at 1409 hours. INDICATION: Pneumothorax. DISCUSSION: Interval placement of a right colostomy tube with distal tip projected on the right mid hemithorax medially. Resolution of previously present large right pneumothorax. Mild right basilar subsegmental atelectasis, otherwise clear without consolidation or effusion. Cardiomediastinal contour is within normal limits. No acute osseous abnormality. IMPRESSION: Interval placement of a right thoracostomy tube with resolution of pneumothorax. Signed by: Dr. Elroy Jackson M.D. on 07/15/2018 4:38 PM
[2018-07-15] MEDS: CEFTRIAXONE SOD 1 GM/NS 50 ML 50 ML IV SCH (16:42)
[2018-07-15] MEDS: SODIUM CHLORIDE 0.9% 1000ML 1,000 ML IV SCH (16:42)
[2018-07-15] MEDS: HYDROMORPHONE 2MG/ML 2 MG/ML ML IV PRN ×2 (16:42→21:36)
[2018-07-15] MEDS ORDERED: POTASSIUM CHLORIDE 20 MEQ TAB CR PO ONE (17:00)
[2018-07-15 17:02] LABS: CREATINE KINASE MB 2.7 ng/mL (0-5.0)
--- NOTE | 2018-07-15 17:02 | Diagnostic Imaging Report ---
PROCEDURE: A single AP view of the chest. COMPARISON: 07/15/2018 at 4:09 PM INDICATIONS: REPOSITIONED CHEST TUBE FINDINGS: Lines/tubes: A right-sided chest tube has been repositioned. The lucent side port is within the chest wall and not in the pleural space. Lungs: The lungs are well inflated and clear. There is no evidence of pneumonia or pulmonary edema. Pleura: No pneumothorax. Heart and mediastinum: The heart and the mediastinum are unremarkable. Bones: No acute bony abnormality. IMPRESSION: Right-sided chest tube as described above. Shan Cook D.O. Dictated by: Shan Cook D.O. on 07/15/2018 at 17:14 Electronically approved by: Shan Cook D.O. on 07/15/2018 at 17:14
--- NOTE | 2018-07-15 19:26 | Consultation ---
DATE OF CONSULTATION: PULMONARY CONSULTATION A charming but unfortunate 37-year-old gentleman, admitted with chest pain and shortness of breath of sudden onset, cough and felt a pulling sensation in the right side of his neck. He has a history of fatty liver, drinks on the weekend. No allergies. Smoked in the past. History of normal alpha-1 antitrypsin level, history of hypertension in the family. 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 PHYSICAL EXAMINATION GENERAL: He is a well-developed burly white male in no acute distress, complaining of minor pleuritic chest pain. Right chest tube is place. HEAD: Normocephalic and atraumatic. EYES: Extraocular movements intact. LUNGS: Diminished breath sounds right chest. HEART: Regular rhythm. ABDOMEN: Nontender. EXTREMITIES: Not edematous. IMPRESSIONS 1. Recurrent spontaneous right pneumothorax. 2. Normal alpha-1 antitrypsin level. 3. Fatty liver. Consider thoracic surgical opinion with regard to pleurectomy and bullectomy. Continue chest tube drainage. Thank you for this kind referral. Job#: [id number] CQ
[2018-07-15 20:00] VITALS: BP 135/78
[2018-07-16] VITALS (8 sets, daily range): BP systolic 119–136; BP diastolic 62–88
[2018-07-16] MEDS: SODIUM CHLORIDE 0.9% 1000ML 1,000 ML IV SCH ×4 (01:11→20:04)
[2018-07-16] MEDS: CEFTRIAXONE SOD 1 GM/NS 50 ML 50 ML IV SCH ×2 (03:04→16:10)
[2018-07-16 04:48] LABS: BASOPHILS # (AUTO) 0.1 (0.0-0.1); BASOPHILS % 0.7 % (0.0-1.0); EOSINOPHILS # (AUTO) 0.2 (0.0-0.4); EOSINOPHILS % 2.1 % (0.0-6.0); HEMATOCRIT 41.4 % (38.2-49.6); HEMOGLOBIN 13.9 g/dL (14.0-18.0); LYMPHOCYTES % 26.7 % (18.0-39.1); MEAN CORPUSCULAR HEMOGLOBIN 30.5 pg (28-32); MEAN CORPUSCULAR HGB CONC 33.6 g/dL (31-35); MEAN CORPUSCULAR VOLUME 90.8 fL (81-99); MONOCYTES # (AUTO) 0.7 (0.2-0.8); MONOCYTES % 8.7 % (4.4-11.3); NEUTROPHILS # (AUTO) 4.6 (2.1-6.9); NEUTROPHILS % 61.4 % (38.7-80.0); PLATELET COUNT 155 x10e3/uL (140-360); RED BLOOD COUNT 4.56 x10e6/uL (4.3-5.7); RED CELL DISTRIBUTION WIDTH 13.2 % (11.7-14.4)
[2018-07-16] MEDS: HYDROMORPHONE 2MG/ML 2 MG/ML ML IV PRN ×3 (04:53→17:20)
[2018-07-16 05:13] LABS: ALANINE AMINOTRANSFERASE 44 IU/L (0-55); ALBUMIN 3.9 g/dL (3.5-5.0); ALBUMIN/GLOBULIN RATIO 1.3 (0.8-2.0); ALKALINE PHOSPHATASE 39 IU/L (40-150); ANION GAP 13.7 mmol/L (8-16); BLOOD UREA NITROGEN 9 mg/dL (7-26); BUN/CREATININE RATIO 11 (6-25); CALCIUM 8.7 mg/dL (8.4-10.2); CARBON DIOXIDE 23 mmol/L (22-29); CHLORIDE 103 mmol/L (98-107); CREATININE, SERUM 0.81 mg/dL (0.72-1.25); EST GLOMERULAR FILTRATION RATE > 60 ML/MIN (60-); GLUCOSE 97 mg/dL (74-118); POTASSIUM 3.7 mmol/L (3.5-5.1); SODIUM 136 mmol/L (136-145)
[2018-07-16 05:49] LABS: CREATINE KINASE MB 1.5 ng/mL (0-5.0)
--- NOTE | 2018-07-16 06:23 | NUR ---
called and spoke to Dr. Ran Mujica regarding consult
[2018-07-16 06:56] LABS: ANISOCYTOSIS SLIGHT; PLATELET ESTIMATE ADEQUATE; PLATELET MORPHOLOGY COMMENT NORMAL; RBC MORPHOLOGY COMMENT NORMAL
[2018-07-16] MEDS: AZITHROMYCIN 500MG/NS 250 ML 250 ML IV SCH (08:50)
[2018-07-16 14:03] LABS: CREATINE KINASE MB 1.3 ng/mL (0-5.0)
--- NOTE | 2018-07-16 15:25 | NUR ---
SOCIAL WORK INITIAL ASSESSMENT Flood Control Engineer to bedside to discuss plan of care with patient/family. CM/SW role and care transitions discussed. Anticipated discharge plan discussed along with duration of care. CM/SW discussed patients right to make decisions in care. CM/SW work hours given. 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 Name and number was also written on the patients whiteboard. Patient verbalized understanding of discussion. CM will follow-up with ongoing discharge and transition of care needs.
[2018-07-16] MEDS ORDERED: DIPHENHYDRAMINE HCL 25 MG CAP PO PRN (19:15)
--- NOTE | 2018-07-16 19:30 | NUR ---
PT CONTINUE ON PAIN MANAGEMENT AND IN ANTIBIOTICS, CHEST TUBE IN PLACE WITH MINIMAL SANGUINOUS DRAINAGE.
[2018-07-17] VITALS (7 sets, daily range): BP systolic 101–129; BP diastolic 49–79
[2018-07-17] MEDS: CEFTRIAXONE SOD 1 GM/NS 50 ML 50 ML IV SCH ×2 (03:30→17:23)
[2018-07-17] MEDS: HYDROMORPHONE 2MG/ML 2 MG/ML ML IV PRN (06:37)
--- NOTE | 2018-07-17 07:20 | NUR ---
RECEIVED PATIENT RESTING IN BED. NO ACUTE DISTRESS NOTED. CALL LIGHT WITHIN REACH. BED IN THE LOWEST POSITION.
[2018-07-17] MEDS: AZITHROMYCIN 500MG/NS 250 ML 250 ML IV SCH (08:46)
[2018-07-17] MEDS ORDERED: HEPARIN SOD/SOD CHLORIDE 1,000 ML ONE (09:54)
[2018-07-17] MEDS ORDERED: BACITRACIN 50,000 UNIT VIAL ONE (10:03)
[2018-07-17] MEDS ORDERED: ACETAMINOPHEN 1000 MG/100 ML IV PRN (13:15)
[2018-07-17] MEDS ORDERED: MEPERIDINE HCL INJ 25 MG/ML VIAL ONE (13:30)
--- NOTE | 2018-07-17 14:35 | Operative Report ---
DATE OF PROCEDURE: July 17, 2018 PREOPERATIVE DIAGNOSIS: Right recurrent spontaneous pneumothorax. POSTOPERATIVE DIAGNOSIS: Right recurrent spontaneous pneumothorax. OPERATION PERFORMED: Right video-assisted thoracoscopic surgery with resection of right upper lobe blebs and right pleurectomy. CAT CRACKER OPERATOR: GAIL Hyde. ANESTHESIA: General. COMPLICATIONS: None. ESTIMATED BLOOD LOSS: 75 mL. DESCRIPTION OF PROCEDURE: With the patient lying in bed in the lateral position under good general endotracheal anesthesia with a double lumen tube, the right chest was prepped with Betadine solution and draped in the usual manner. The previous chest tube had been placed in the right midchest at the axillary line. The track was then explored with the finger, and the right chest cavity was entered. A video thoracoscope was then placed through this tract. The entire lung could be seen to have been adequately collapsed with a double lumen tube. Two more entry points were then created with thoracoports, one anteriorly and one posteriorly in the lower chest. After this was done, examination including insufflation of the lung revealed that the patient had some small blebs in the upper pole of the lung, which were the cause of the recurrent pneumothoraces. There was no other abnormality identified. The lung was then thoroughly inspected in the middle lobe and the lower lobe. No further blebs were identified. We decided to go ahead and resect the blebs in the upper lobe. This was done using 2 separate rows of angy with the Stewardson stapler. The 2 separate areas were removed and sent for pathological examination. After this was done, the lung was then checked for any further leakage and there was no air leak whatsoever. A pleurectomy was then done completely around the entire lung to prevent any further collapse in the future. Once this was done, the pleura was sent for pathological examination. A #28 chest tube was then placed through one of the thoracoport sites anteriorly, and sutured to the skin with Ethibond suture. The lung was then re-expanded without any difficulty. The trocar sites were then closed by approximating the muscle with interrupted sutures of 0 Vicryl. Subcutaneous tissue was approximated with 3-0 Vicryl, and the skin was closed with interrupted vertical mattress sutures of 3-0 silk. Dressings were applied. The sponge, lap and needle count was correct. Patient tolerated the procedure well and returned to the recovery room in stable condition. Job#: [id number]
[2018-07-17] MEDS ORDERED: DIPHENHYDRAMINE HCL INJ 50 MG/ML VIAL ONE (14:37)
--- NOTE | 2018-07-17 15:01 | NUR ---
Patient admitted to unit from PACU. Patient is post op TURP. Blancas in place with continuous bladder irrigation. Urine noted to be pink tinged. Lung coleman clear to auscultation. Bowel sounds present but hypoactive. Patient c/o pain in lower abdomen/bladder area. PRN medication given. No edema noted. Left hand 20G IV in place. IV fluids infusing. Patient tolerated his diet. No s/s of distress noted Addendum: 07/17/18 at 1629 by Natalie Helton RN Wrong patient
[2018-07-17] MEDS ORDERED: NEOSTIGMINE 5 MG/5ML SYR ONE (15:09)
[2018-07-17] MEDS ORDERED: LIDOCAINE HCL 2% LOCAL INJ 5 ML SDV VIAL INJ ONE (15:09)
[2018-07-17] MEDS ORDERED: SEVOFLURANE INHAL SOLN 250 ML PEN BTL ONE (15:09)
[2018-07-17] MEDS ORDERED: CEFTRIAXONE SOD 1 GM VIAL ONE (15:09)
[2018-07-17] MEDS ORDERED: ONDANSETRON HCL INJ 2 MG/ML VIAL ONE (15:09)
[2018-07-17] MEDS ORDERED: GLYCOPYRROLATE INJ 1MG/ 5 ML SYR ONE (15:09)
[2018-07-17] MEDS ORDERED: ROCURONIUM BROMIDE 10 MG/ML 5ML VIAL ONE (15:09)
[2018-07-17] MEDS ORDERED: PROPOFOL IV EMULSION 10 MG/ML 20 ML VIAL ONE (15:09)
[2018-07-17] MEDS ORDERED: KETOROLAC TROMETHAMINE 30 MG/ML VIAL ONE (15:09)
[2018-07-17] MEDS ORDERED: DEXAMETHASONE SOD PHOS INJ 4 MG/ML VIAL ONE (15:09)
--- NOTE | 2018-07-17 15:18 | NUR ---
Patient transferred to unit from PACU. Patient is AAOx3. Patient is post op chest tube removal and exchange d/t pneumothorax. Dressing to right side of chest intact. Chest tube hooked up to suction. Lung coleman diminished to auscultation. Patient c/o discomfort when deep breaths taken. No shortness of breath noted at this time.
[2018-07-17] MEDS ORDERED: FENTANYL CITRATE/PF 100MCG/2 ML INJ ONE (15:52)
[2018-07-17] MEDS ORDERED: MIDAZOLAM HCL 2 MG/2 ML VIAL ONE (15:52)
[2018-07-17] MEDS ORDERED: MORPHINE SULFATE INJ 10 MG/ML ONE (15:52)
[2018-07-17] MEDS: DEXTROSE 5%/LACTATED RINGERS 1,000 ML IV SCH ×2 (17:23→23:08)
[2018-07-17] MEDS: HYDROCODONE/APAP 7.5MG-325MG 1 EA TAB PO PRN (21:27)
[2018-07-18] VITALS (8 sets, daily range): BP systolic 103–115; BP diastolic 52–69
[2018-07-18] MEDS: KETOROLAC TROMETHAMINE 30 MG/ML VIAL IV PRN (01:16)
[2018-07-18] MEDS: CEFTRIAXONE SOD 1 GM/NS 50 ML 50 ML IV SCH ×2 (03:49→15:21)
[2018-07-18 04:57] LABS: BASOPHILS % 0.1 % (0.0-1.0); EOSINOPHILS % 0.1 % (0.0-6.0); HEMATOCRIT 38.3 % (38.2-49.6); HEMOGLOBIN 13.2 g/dL (14.0-18.0); LYMPHOCYTES # (AUTO) 1.1 (1.0-3.2); LYMPHOCYTES % 9.7 % (18.0-39.1); MEAN CORPUSCULAR HEMOGLOBIN 30.3 pg (28-32); MEAN CORPUSCULAR HGB CONC 34.5 g/dL (31-35); MONOCYTES % 8.5 % (4.4-11.3); NEUTROPHILS # (AUTO) 9.4 (2.1-6.9); NEUTROPHILS % 81.2 % (38.7-80.0); PLATELET COUNT 214 x10e3/uL (140-360); RED BLOOD COUNT 4.35 x10e6/uL (4.3-5.7); RED CELL DISTRIBUTION WIDTH 12.7 % (11.7-14.4)
[2018-07-18 05:15] LABS: ANION GAP 14.2 mmol/L (8-16); BLOOD UREA NITROGEN 8 mg/dL (7-26); BUN/CREATININE RATIO 11 (6-25); CALCIUM 8.8 mg/dL (8.4-10.2); CARBON DIOXIDE 21 mmol/L (22-29); CHLORIDE 105 mmol/L (98-107); CREATININE, SERUM 0.74 mg/dL (0.72-1.25); EST GLOMERULAR FILTRATION RATE > 60 ML/MIN (60-); GLUCOSE 101 mg/dL (74-118); POTASSIUM 4.2 mmol/L (3.5-5.1); SODIUM 136 mmol/L (136-145)
--- NOTE | 2018-07-18 06:40 | Diagnostic Imaging Report ---
EXAM: CHEST SINGLE (PORTABLE), AP 1 view INDICATION: Pneumothorax COMPARISON: AP view of the chest July 15, 2018 FINDINGS: LINES/TUBES: Interval advancement of right chest tube. LUNGS: No consolidations or edema. PLEURA: No effusions or pneumothorax. HEART AND MEDIASTINUM: Normal size and contour. BONES AND SOFT TISSUES: No acute findings. IMPRESSION: Interval advancement of right chest tube. No pneumothorax. Signed by: Dr. Marlee Hayes M.D. on 07/18/2018 6:36 AM
--- NOTE | 2018-07-18 07:06 | NUR ---
output from chest tube was 20ml. report given to AM nurse, patient is aax3 resting in bed.
--- NOTE | 2018-07-18 07:38 | NUR ---
Rcvd patient in report this am. Patient is asleep in bed at this time. No c/o pain. No s/s of distress noted
[2018-07-18] MEDS: DEXTROSE 5%/LACTATED RINGERS 1,000 ML IV SCH (08:20)
[2018-07-18] MEDS: HYDROCODONE/APAP 7.5MG-325MG 1 EA TAB PO PRN ×2 (15:22→23:18)
--- NOTE | 2018-07-18 15:49 | NUR ---
Blancas removed at this time. Patient tolerated well. No c/o pain. 1200ml of clear urine noted. Patient d/t void in 6-8 hours
--- NOTE | 2018-07-18 19:02 | NUR ---
Patient voided at this time. 400ml of clear urine
--- NOTE | 2018-07-18 19:12 | NUR ---
received patient in bed, family to bedside. denies pain at this time. chest tube in place. will continue to monitor the patient closely. encouraged to call for help, verbalized understanding. bed locked and in lowest position, call light within easy reach.
[2018-07-19] VITALS (8 sets, daily range): BP systolic 100–127; BP diastolic 54–76
[2018-07-19] MEDS: CEFTRIAXONE SOD 1 GM/NS 50 ML 50 ML IV SCH ×2 (03:45→16:00)
--- NOTE | 2018-07-19 06:41 | Diagnostic Imaging Report ---
EXAM: CHEST SINGLE (PORTABLE), AP 1 view INDICATION: Spontaneous pneumothorax COMPARISON: AP view of the chest July 18, 2018 FINDINGS: LINES/TUBES: Stable right chest tube LUNGS: No consolidations or edema. PLEURA: No effusions or pneumothorax. HEART AND MEDIASTINUM: Normal size and contour. BONES AND SOFT TISSUES: No acute findings. IMPRESSION: No pneumothorax. Signed by: Dr. Marlee Hayes M.D. on 07/19/2018 6:38 AM
--- NOTE | 2018-07-19 07:30 | NUR ---
Rcvd patient in report this am. Patient is asleep in bed at this time. Chest tube remains to suction. No c/o pain at this time.
[2018-07-19] MEDS: KETOROLAC TROMETHAMINE 30 MG/ML VIAL IV PRN (10:24)
[2018-07-19] MEDS: HYDROCODONE/APAP 7.5MG-325MG 1 EA TAB PO PRN (10:24)
[2018-07-19] MEDS: HYDROMORPHONE 2MG/ML 2 MG/ML ML IV PRN (16:29)
--- NOTE | 2018-07-19 16:42 | NUR ---
Chest tube removed at this time per Dr. Mujica. Patient tolerated well. Dressing placed and clean and dry. No c/o pain at this time.
--- NOTE | 2018-07-19 18:24 | Diagnostic Imaging Report ---
EXAMINATION: CHEST 2 VIEWS INDICATION: Chest tube removal COMPARISON: Chest x-ray 0602 hours, chest x-ray 07/15/2018 FINDINGS: PA and lateral views TUBES and LINES: Left chest tube has been removed LUNGS: Lungs are well inflated. Focal opacity in the right midlung field is stable. No new findings in either lung. PLEURA: Tiny right apical pneumothorax. No pleural effusion. Mild eventration of the right diaphragm is stable. HEART AND MEDIASTINUM: The cardiomediastinal silhouette is unremarkable.. BONES AND SOFT TISSUES: No focal osseous lesions. Soft tissues are unremarkable. UPPER ABDOMEN: No free air under the diaphragm. IMPRESSION: Tiny right apical pneumothorax after chest tube removal. Signed by: Dr. Fabiola Miller MD on 07/19/2018 6:21 PM
--- NOTE | 2018-07-19 19:05 | NUR ---
Call placed to Dr. Mujica to inform of the CXR results. No new orders at this time. CXR in the am. Orders noted
--- NOTE | 2018-07-19 19:10 | NUR ---
received patient in bed, aaox3. drsg to right side chest intact and dry. denies pain at this time. no needs voiced. encouraged to call for assistance, verbalized understanding. bed locked and in lowest position. call light within easy reach.
[2018-07-20] MEDS: CEFTRIAXONE SOD 1 GM/NS 50 ML 50 ML IV SCH ×2 (03:33→14:35)
[2018-07-20] MEDS: HYDROCODONE/APAP 7.5MG-325MG 1 EA TAB PO PRN ×2 (03:34→12:04)
--- NOTE | 2018-07-20 06:34 | Diagnostic Imaging Report ---
EXAM: CHEST SINGLE (PORTABLE), AP 1 view INDICATION: Pneumothorax COMPARISON: AP view of the chest July 19, 2018 FINDINGS: LINES/TUBES: None LUNGS: Stable focal opacity right midlung, possibly from prior chest tube tract. Mild right upper lung subsegmental atelectasis. PLEURA: Trace right apical pneumothorax. HEART AND MEDIASTINUM: Normal size and contour. BONES AND SOFT TISSUES: No acute findings. IMPRESSION: Persistent trace right apical pneumothorax. Signed by: Dr. Marlee Hayes M.D. on 07/20/2018 6:31 AM
[2018-07-20 06:41] VITALS: BP 106/58
[2018-07-20 08:00] VITALS: BP 110/57
[2018-07-20 09:33] VITALS: BP 110/57
--- NOTE | 2018-07-20 09:33 | NUR ---
assessment complete no distress noted,updated on poc voiced understanding, denies pain at this time, r ac 20g sl, dsg to right chest c/d/i, no other co vocied call light in reach will continue to monitor
[2018-07-20 12:03] VITALS: BP 104/65
[2018-07-20 16:00] VITALS: BP 113/72
[2018-07-20] MEDS ORDERED: NORCO 7.5-3251 EACH PO (18:01)
== END 2018-07-20 18:35 | disposition home or self-care (01) | DRG 165 ==
LOC: ER 13:34 → ERHOLD 16:16 → MED/SURG2 18:37 → MED/SURG 07-17 15:18
PROVIDERS: ADMIT Internal Medicine; ATTEND Internal Medicine
PROC: 0BTC4ZZ Resection of Right Upper Lung Lobe, Percutaneous Endoscopic Approach (ICD-10-PCS; 2018-07-17)
PROC: 0BBN4ZZ Excision of Right Pleura, Percutaneous Endoscopic Approach (ICD-10-PCS; 2018-07-17)
PROC: 0W9930Z Drainage of Right Pleural Cavity with Drainage Device, Percutaneous Approach (ICD-10-PCS; principal; 2018-07-17 14:00)
DX: J93.83 Other pneumothorax (principal); K76.0 Fatty (change of) liver, not elsewhere classified; E87.6 Hypokalemia
CPT/HCPCS: 32551; 36415; 71045; 71046; 80048; 80053; 82550; 82553; 84484; 85025; 85610; 85730; 87040; 88305; 96361; 99284; J0456; J0696; J1100; J1200; J1885; J2001; J2175; J2250; J2270; J2405; J7030